=== PATIENT | female | born 1995 | race Caucasian/White ===

== ENCOUNTER 2023-03-30 14:47 | Outpatient (REF) | payer MEDICAID, SELFPAY ==
--- NOTE | 2023-03-30 14:53 | EMG_ITS ---
Chief complaint: Hand numbness Reason for referral: Evaluate for Carpal Tunnel Syndrome Referred by: Dr. Tushar Dhaliwal Procedure done: Bilateral upper extremities NCS/EMG Precautions and/or limitations: None The limb temperature was monitored continuously and remained between 32-36 degrees C during the performance of the NCS. Nerve Conduction Studies Anti Sensory Summary Table ?Stim Site NR Onset (ms) Norm Onset (ms) Peak (ms) Norm Peak (ms) O-P Amp (?V) Norm O-P Amp Site1 Site2 Delta-0 (ms) Dist (cm) Rupert (m/s) Norm Rupert (m/s) Right Median Anti Sensory (2nd Digit) Wrist ? 2.0 2.7 <3.6 65.9 >10 Wrist 2nd Digit 2.0 14.0 70 Right Ulnar Anti Sensory (5th Digit) Wrist ? 2.3 2.8 <3.7 33.5 >15.0 Wrist 5th Digit 2.3 14.0 61 Motor Summary Table ?Stim Site NR Onset (ms) Norm Onset (ms) O-P Amp (mV) Norm O-P Amp iAmp (mV) Amp (1st) (%) Site1 Site2 Delta-0 (ms) Dist (cm) Rupert (m/s) Norm Rupert (m/s) Left Median Motor (Abd Poll Brev) Wrist ? 3.0 <3.9 10.8 >4.5 12.4 100.0 Elbow Wrist 3.3 19.0 58 >45 Elbow ? 6.3 9.4 10.7 87.0 Right Median Motor (Abd Poll Brev) Wrist ? 2.4 <3.9 8.6 >4.5 10.1 100.0 Elbow Wrist 3.6 20.5 57 >45 Elbow ? 6.0 8.4 9.8 97.7 Left Ulnar Motor (Abd Dig Minimi) Wrist ? 2.6 <3.0 7.7 >5 9.5 100.0 B Elbow Wrist 2.7 16.5 61 >45 B Elbow ? 5.3 7.2 9.1 93.5 A Elbow B Elbow 1.5 10.0 67 >45 A Elbow ? 6.8 6.6 8.6 85.7 Right Ulnar Motor (Abd Dig Minimi) Wrist ? 2.6 <3.0 9.1 >5 10.9 100.0 B Elbow Wrist 2.8 17.0 61 >45 B Elbow ? 5.4 9.1 10.9 100.0 A Elbow B Elbow 1.2 10.0 83 >45 A Elbow ? 6.6 9.0 10.7 98.9 Comparison Summary Table ?Stim Site NR Peak (ms) Norm Peak (ms) P-T Amp (?V) Site1 Site2 Delta-P (ms) Norm Delta (ms) Left Median/Radial Dig I Comparison (Digit 1 - 10cm) Median ? 2.3 <2.9 102.1 Median Radial 0.2 Radial ? 2.1 <2.8 37.0 Right Median/Radial Dig I Comparison (Digit 1 - 10cm) Median ? 2.2 <2.9 734.1 Median Radial 0.1 Radial ? 2.3 <2.8 45.5 EMG ?Side Muscle Nerve Root Ins Act Fibs Psw Amp Dur Poly Recrt Int Pat Comment Right 1stDorInt Ulnar C8-T1 Nml Nml Nml Nml Nml 0 Nml Complete Right FlexCarRad Median C6-7 Nml Nml Nml Nml Nml 0 Nml Complete Right Biceps Musculocut C5-6 Nml Nml Nml Nml Nml 0 Nml Complete Right Triceps Radial C6-7-8 Nml Nml Nml Nml Nml 0 Nml Complete Right Deltoid Axillary C5-6 Nml Nml Nml Nml Nml 0 Nml Complete Left 1stDorInt Ulnar C8-T1 Nml Nml Nml Nml Nml 0 Nml Complete Left FlexCarRad Median C6-7 Nml Nml Nml Nml Nml 0 Nml Complete Left Biceps Musculocut C5-6 Nml Nml Nml Nml Nml 0 Nml Complete Left Triceps Radial C6-7-8 Nml Nml Nml Nml Nml 0 Nml Complete Left Deltoid Axillary C5-6 Nml Nml Nml Nml Nml 0 Nml Complete FINDINGS: All motor and sensory nerves tested showed normal latencies, amplitudes and conduction velocities. Concentric needle EMG was performed in selected muscles of the bilateral upper extremities. Study did not reveal signs of electric abnormalities as shown in the table below. IMPRESSION: 1. This is a normal study. 2. There is no electrodiagnostic evidence for median neuropathy, ulnar neuropathy, brachial plexopathy, or cervical radiculopathy. Thank you for your kind referral. Marge Ayala MD, SAROJ Board Certified, [place] Board [employer] and Rehabilitation (ABPMR) Board Certified, [place] Board of Electrodiagnostic Medicine (ABEM) CODIN 80858 x2 MTDD
== END 2023-03-30 14:48 | disposition home or self-care (01) ==
LOC: HO.NEURO 14:47
PROVIDERS: PCP Internal Medicine; Visit Provider Internal Medicine
DX: R20.2 Paresthesia of skin (principal)
CPT/HCPCS: 95886; 95911

== ENCOUNTER → 2023-03-30 14:53 | Outpatient (BNV) | payer MEDICAID, SELFPAY | PROVIDERS: PCP Internal Medicine; Visit Provider Physical Medicine & Rehabilitation | DX: R20.2 Paresthesia of skin (principal) | CPT/HCPCS: 95886; 95911 ==

== ENCOUNTER 2024-12-19 11:16 | Outpatient (AMB) | payer OTHER, SELFPAY ==
--- NOTE | 2024-12-19 11:17 | A.OFFVIS_ITS ---
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 EMG done 03.30.2023 Employment Coach Required: No Accompanied by: Self / Same As Patient Allergies No Known Allergies Allergy (Verified 12/19/24 11:22) HPI Comments Details: 29y/o female 2 years ago she started feeling pins and needles sensations and numbness in hands radiating to her elbows intermittently. R>L resolved Apr 2024 - when her work improved . 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 Once work improved her symptoms resolved. EMG was normal . she reports chronic sleep issues , since she started college . she sleeps about 4 hrs a night . It takes 30 min to 60min . she goes to bed at 9 PM - usually not tired . she sleeps at 10am - wakes up at 4.30am . Her daughter usually wakes up at 12 am but the patient is able to fall asleep . But wakes up 2am-3am and cannot sleep for 45 minutes - not sure why she wakes up and has trouble falling asleep.she tries to read bhupinder . she works 7.30 am- 4 pm she wakes up at 4.30 am , drinks water , exercises 25 minutes cardio . she then gets reday for her work - showers , greens drink , wakes her daughter and gets ready , packs lunch and out the door by 6 .50am No naps. she may take an 1 hr nap after work . she has h/o anxiety she has tried melatonin ,nyquil in the past [facility] Medical History (Updated 12/19/24 @ 12:56 by Aracely Marroquin MD) Insomnia Numbness and tingling in both hands Ovarian cyst rupture Constipation Placenta previa Surgical History H/O section Family History Brother ADD (attention deficit disorder) Diabetes Father No problems noted. Mother No problems noted. Social History Alcohol intake: never Patient Tobacco Use Status: Never used Tobacco Physical Exam Vital Signs: Last Vital Signs Pulse 88 12/19/24 11:20 BP 112/70 12/19/24 11:20 Pulse Ox 98 12/19/24 11:20 Oxygen Delivery Method Room Air 12/19/24 11:20 BMI result Body Mass Index 32.6 Const General: cooperative, healthy appearing, comfortable and no acute distress Nutritional Appearance: average body habitus Orientation/consciousness: patient oriented x3 Eyes Pupils: Equal, round and reactive pupils present Neuro General: patient oriented x3, gait normal, tone normal, moves all extremities and no focal motor deficits Cranial nerves: Yes Facial sensation intact/muscles of mastication intact, Yes Equal, round and reactive pupils present, Yes Bilaterally intact EOM present, Yes Nystagmus not present, Yes Normal facial strength present and Yes Midline tongue present Cognition (Neuro): normal cognition Gait exam (Neuro): Normal gait present Motor exam (neuro): 5/5 motor strength present throughout and Normal motor muscle tone present throughout Deep tendon reflexes (DTR's): Right triceps reflex intensity grade: 2+, Left triceps reflex intensity grade: 2+, Rt Biceps (C5, C6): 2+, Left biceps reflex intensity grade: 2+, Right brachioradialis reflex intensity grade: 2+, Left brachioradialis reflex intensity grade: 2+, Right patellar reflex intensity grade: 2+ and Left patellar reflex intensity grade: 2+ Coordination: [id number]-[id number] test normal Assessment & Plan Assessment & Plan (1) Numbness and tingling in both hands: Comment: resolved Code(s): R20.0 - Anesthesia of skin; R20.2 - Paresthesia of skin Category: Medical (2) Insomnia: Code(s): G47.00 - Insomnia, unspecified Category: Medical Plan Discussed sleep hygiene in detail suggested to delay her sleep time to 10 pm which can decrease sleep latency and wake time to 5 am Sleep diary to asses her sleep suggested to try sleep music or meditation music when she allred sarousals in the middle of the night. Her sensory symptoms have resolved. she will call me if her symptoms recur I will consider sleep study. Coding Level of Care Code New Pt Level 4 (36888) Diagnoses Numbness and tingling in both hands R20.0; R20.2 Insomnia G47.00
[2024-12-19 11:20] VITALS: BP 112/70; PULSE 88; O2SAT 98; BMI 32.6
--- OUTSIDE RECORDS SUMMARY | 2024-12-19 12:38 | XMS_ITS | Clinical Summary ---
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) 09/02/2017 Overview (04/02/2024): 07/23/16 Pap - ASCUS, +HPV 08/26/17 Pap - NIL Encounters Date Type Department Care Team Description 09/25/2024 Telephone General Surgery [facility] [address] [address] Bony Duque MD Forms/questionnaires 09/20/2024 4:15 PM EDT Office Visit [address] [phone] Bony Duque MD Abdominal wall mass (Primary Dx); Mass of perirectal soft tissue from Last 3 Months Immunizations Name Administration Dates Next Due DTP 1995,1995,1995 DTaP (Infanrix) 6wks to less than 7yo 11/18/2000 ,08/11/1996 HPV, Quadrivalent 09/30/2007,04/28/2007,02/22/20 07 Hepatitis B Pediatric (Enger ix B; Recombivax HB) to less than 20 yo 10/07/2010,1995,1995,03/26 HiB 08/11/1996, 6,1995,05/17 IPV Inactivated polio (Ipol) 6wks and older 11/18/2000 Influenza Quadravalent, MDCK , 0.5ml, preservative free (Flucelvax) 6mo and older 03/30/2023,04/01/2020 Influenza trivalent, with pr eservative (Fluzone; Afluria) 6mo and older 01/02/2016 Influenza, Unspecified 04/01/2020 MMR, measles mumps and rubel la Live (Priorix; M-M-R II) 12mo and older 11/18/2000,1996 Meningococcal MCV4P 12/08/2012,08/18/2009 OPV 1995,1995,1995 Pfizer SARS-CoV-2 COVID-19, mRNA, LNP-S, preservative free 09/02/2020,08/12/2020 Tdap Tetanus diptheria acell ular pertussis (Boostrix; Adacel) 7yo and older 05/07/2020,02/21/2007 Varicella live (Varivax) 12m o and older 03/05/1997 Surgical History Surgery Date Site/Laterality Comments OTHER SURGICAL HISTORY 12/15 PROCEDURE: LAPAROSCOPY PROCEDURE NEC; COMMENT: ovarian cystectomy (right); Dr. Olmstead SECTION 05/09/2020 PROCEDURE: HISTORICAL DELIVERY; COMMENT: Classical due to prematurity Medical History Medical History Date Comments History of 2019 novel feliz virus disease (COVID-19) 04/2020 DX:History of 2019 novel cor onavirus disease (COVID-19) Ovarian cyst Family History Medical History Relation Name Comments Diabetes Brother 1 No Known Problems Brother 2 No Known Problems Brother 3 No Known Problems Father No Known Problems Maternal Grandfather No Known Problems Mother No Known Problems Paternal Grandfather No Known Problems Paternal Grandmother No Known Problems Sister 1 No Known Problems Sister 2 No Known Problems Sister 3 Breast cancer Neg Hx Colon cancer Neg Hx Ovarian cancer Neg Hx Uterine cancer Neg Hx Relation Name Status Comments Brother 1 Alive Brother 2 Alive Brother 3 Alive Father Alive Maternal Grandfather Other Maternal Grandmother Alive Mother Alive Paternal Grandfather Other Paternal Grandmother Other Sister 1 Alive Sister 2 Alive Sister 3 Alive Social History Tobacco Use Types Packs/Day Years Used Date Smoking Tobacco: Never Smokeless Tobacco: Never Alcohol Use Standard Drinks/Week Comments No 0 (1 standard drink = 0.6 oz pur e alcohol) Interpersonal Safety Answer Date Record ed Physical Abuse 09/06/2024 Verbal Abuse 09/06/2024 Comments No Sex and Gender Information Value Date Recorded Sex Assigned at Female 06/08/2024 4:08 PM EST Legal Sex Female 12:36 AM EST Gender Identity Female 06/08/2024 4:08 PM EST Sexual Orientation Straight 06/08/2024 4: 08 PM EST Obstetrics History Para Term AB IAB SAB Ectopic Multiple Livin g Live Births 1 1 1 1 1 Date Outcome GA Total Labor Labor/2nd/3rd Weight Sex Type Anes PTL Meghann A1 A5 Name Clin 021 29w 3d 1786 g (63 oz) F CS-Cl assic al Genera l Livin g Morri ssey/ [place] Complications:Placenta Previ a Delivery Location:[facility] Comments:Bleeding Prev ia ?accessory lobe Last Filed Vital Signs Vital Sign Reading Time Taken Comments Blood Pressure 111/79 09/20/2024 4:02 PM EDT Pulse 93 09/20/2024 4:02 PM EDT Temperature 36.4 C (97.5 F) 09/06/2024 4:51 PM EDT Respiratory Rate 16 09/06/2024 4:51 PM EDT Oxygen Saturation 99% 09/06/2024 4:51 PM EDT Inhaled Oxygen Concentration - - Weight 77.8 kg (171 lb 8 oz) 09/20/2024 4:02 PM EDT Height 157.5 cm (5' 2 ) 09/20/2024 4:02 PM EDT Body Mass Index 31.37 09/20/2024 4:02 PM EDT Plan of Treatment Upcoming Encounters Date Type Department Care Team (Late st Contact Info) Description 01/01/2025 4:00 PM EDT Office Visit General Surgery - [place] [address] [facility] [address] [place] [id number] Bony Duque MD [address] [facility] [address] [place] [address] Health Maintenance Due Date Last Done Comments Cholesterol Screening (Lipid Panel) 04/10/2022 Social Influencers of Health Screening 04/10/2022 COVID-19 Vaccine ( season) 2024 09/02/2020, 08/12/2020 Cervical Cancer Screening: Pap Smear 01/21/2024 01/20/2021, 01/20/2021, 01/20/2021, Additional history exists Depression Screening 05/02/2024 Influenza Vaccine (#1) 2024 , 04/01/2020, 04/01/2020, Additional history exists DTaP,Tdap,and Td Vaccines (8 - Td or Tdap) 05/07/2030 05/07/2020, 02/21/2007, 11/18/2000, Additional history exists HIB Vaccines Completed 08/11/1996, 06/1995, 1995, Additional history exists Varicella Vaccines Aged Out 03/05/1997 No longer eligible based on patient's age to complete this topic IPV Vaccines Completed 11/18/2000, 06/1995, 1995, Additional history exists MMR Vaccines Completed 11/18/2000, 1996 HPV Vaccines Completed 09/30/2007, 04/02, 02/21/2007 Hepatitis B Vaccines Completed 10/07/2010, 1995, 1995, Additional history exists Meningococcal ACWY Vaccine Completed 12/08/2012, HIV Screening Completed 12/26/2019 Hepatitis C Screening Completed 12/26/2019 Gonorrhea/Chlamydia Screening Discontinued 12/21/2022 Hepatitis A Vaccines Aged Out No long er eligible based on patient's age to complete this topic Meningococcal B Vaccine Aged Out No l onger eligible based on patient's age to complete this topic Pneumococcal Vaccine: Pediatrics (0 to 5 Years) and At-Risk Patients (6 to 49 Years) Aged Out No longer eligible based on patient's age to complete this topic RSV Immunization Patients Under 20 months Aged Out No longer eligible based on patient's age to complete this topic Procedures Procedure Name Priority Date/Time Associated Diagnosis Comments GONORRHEA/CHLAMYDIA SCRREENING Routine 12/21/2022 PAP SMEAR Routine 01/20/2021 HEPATITIS C SCREENING Routine 12/26/2019 HIV SCREENING Routine 12/26/2019 from Last 3 Months or Most Recently Relevant to Health Maintenance Results * Gonorrhea/Chlamydia Screening (12/21/2022) Pathologist [facility] Gonorrhea/Chla mydia Screening abstracted Historical Provider HEALTH MAINTENANCE Final Result * Pap smear (01/20/2021) 01/20/2021 Narrative HISTORICAL TESTING LAB RESULTING AGENCY - 02/02/2021 8:00 AM EDT [id number] THINPREP PAP, IMAGED: NEGATIVE FOR SQUAMOUS INTRAEPITHELIAL LESION AND MALIGNANCY . JALEEL CHIRINOS(ASCP) (CASE ELECTRONICALLY SIGNED 01 30 2021) ADEQUACY: SATISFACTORY ENDOCERVICAL/TRANSFORMATION ZONE COMPONENT PRESENT. SOURCE: THINPREP PAP HPV IF ASCUS, CERVICAL, IMAGED CLINICAL INFORMATION: HPV IF DIAGNOSIS OF ASCUS. HORMONES, PAP HX 2017 ASCUS + HPV; 2018 NEG CYTO 2020-UNSATISFACTORY, LMP 12/02/20, Z12.4 Alexsandra ROWELL LAB CYTOLOGY ORDERABLES Final Result HISTORICAL TESTING LAB RESULTING AGENCY * HIV Screening (12/26/2019) Pathologist [facility] HIV Screening abstracted Historical Provider HEALTH MAINTENANCE Final Result * Hepatitis C Screening (12/26/2019) Pathologist [facility] Hepatitis C Screening abstracted Historical Provider HEALTH MAINTENANCE Final Result from Last 3 Months or Most Recently Relevant to Health Maintenance Insurance [place]ICAID - [place] [facility] [address] [place] [address] Care Teams Automotive Quality Engineer Relationship Specialty Start Date End Date Erin Horan PA [address] [facility] [address] [place] [address] PCP - General 09/02/23
--- OUTSIDE RECORDS SUMMARY | 2024-12-19 12:38 | XMS_ITS ---
Author Name [facility] Organization Unknown Encounters Encounter Type Encounter Reason Primary Diagnosis Location Date Emergency cough [facility] 12/11/2021 Care Team Organization Name Specialty Phone Email Start Date End Da te [facility] NULL Primary Care 03/09/2022 12/19/2023 [facility] 12/11/2021 12/11/2021 [facility] OUT OF TOWN PCP ED ONLY Primary Care 12/11/2021 12/11/2021
== END 2024-12-19 12:03 | disposition home or self-care (01) ==
LOC: HO.HSMS 11:17
PROVIDERS: PCP Internal Medicine; Visit Provider Psychiatry & Neurology Neurology
DX: R20.0 Anesthesia of skin (principal); R20.2 Paresthesia of skin; G47.00 Insomnia, unspecified
CPT/HCPCS: 99204